=== PATIENT | female | born 1985 | race Caucasian/White ===

== ENCOUNTER 2018-05-16 17:54 | Emergency (ER) | payer OTHER ==
[~2018-05-16] VITALS: Ht 172.7 cm; Wt 68.0 kg
[2018-05-16 17:56] VITALS: BP 126/72
--- NOTE | 2018-05-16 18:10 | NUR ---
PT ABMULATED TO ER BED 05
--- NOTE | 2018-05-16 18:12 | NUR ---
BIB WITH C/O LOWER BACK PAIN FROM FALL THIS MORNING. PT STATES SHE WAS FEELING DIZZY EARLIER THIS MORNING FELL AND HIT HER LOWER BACK. PT IS NOT ABLE TO WALK AT THIS TIME, + VOMITING X 2, + DIZZINESS. 10/10 SHARP PAIN, -LOC
--- NOTE | 2018-05-16 19:06 | NUR ---
report given to Harley for continued care. Patient stable.
--- NOTE | 2018-05-16 19:09 | NUR ---
KVNG WHALEY EVALUATING PATIENT AT BEDSIDE
--- NOTE | 2018-05-16 19:13 | NUR ---
REPORT RECEIVED FROM JENELLE WINKLER
[2018-05-16] MEDS ORDERED: KETOROLAC 30 MG/ML VIAL IM ONE (19:15)
--- NOTE | 2018-05-16 19:38 | NUR ---
Patient discharged with v/s stable. Written and verbal after care instructions given and explained. Patient alert, oriented and verbalized understanding of instructions. Ambulatory with steady gait. All questions addressed prior to discharge. ID band removed. Patient advised to follow up with PMD. Rx of IBUPROFEN AND TYLENOL given. Patient educated on indication of medication including possible reaction and side effects. Opportunity to ask questions provided and answered.
[2018-05-16 19:39] VITALS: BP 126/72
== END 2018-05-16 19:38 | disposition home or self-care (01) ==
LOC: MED 17:54
DX: S39.92XA Unspecified injury of lower back, initial encounter (principal); R42 Dizziness and giddiness; W19.XXXA Unspecified fall, initial encounter; Y93.89 Activity, other specified; Y92.89 Other specified places as the place of occurrence of the external cause; Y99.8 Other external cause status
CPT/HCPCS: 72220; 81002; 81025; 96372; 99283; J1885

== ENCOUNTER 2018-09-21 06:29 | Day surgery (SDC) | payer OTHER ==
[~2018-09-21] VITALS: Ht 172.7 cm; Wt 79.8 kg
[2018-09-21] MEDS ORDERED: BEN10 PO (07:27)
[2018-09-21] MEDS ORDERED: OMEP40EC14 PO (07:27)
[2018-09-21] MEDS ORDERED: LIDOCAINE 2% 100 MG/5 ML UJET TP ONE (07:57)
[2018-09-21] MEDS ORDERED: fentaNYL 0.05 MG/ML VIAL ONE (07:57)
[2018-09-21] MEDS ORDERED: fentaNYL 0.05 MG/ML VIAL IVP ONE (08:14)
== END 2018-09-21 09:17 | disposition home or self-care (01) ==
LOC: MMU 06:29 → MDS 06:29
PROVIDERS: ATTEND Internal Medicine Gastroenterology
DX: K63.89 Other specified diseases of intestine (principal); K21.9 Gastro-esophageal reflux disease without esophagitis; G43.909 Migraine, unspecified, not intractable, without status migrainosus; Z79.899 Other long term (current) drug therapy; Z98.890 Other specified postprocedural states
CPT/HCPCS: 45378; 81025; J3010

== ENCOUNTER 2020-03-21 20:22 | Emergency (ER) | payer OTHER ==
[~2020-03-21] VITALS: Ht 172.7 cm; Wt 72.6 kg
[~2020-03-21 20:22] MED LIST: BEN10 PO; OMEP40EC14 PO
[2020-03-21 20:25] VITALS: BP 132/76
--- NOTE | 2020-03-21 20:28 | NUR ---
TO LOBBY A/W BED AMBULATORY
--- NOTE | 2020-03-21 21:50 | NUR ---
SEEN AND EXAMINED BY AURELIO AND WITH ORDERS , CARRIED OUT.
[2020-03-21] MEDS ORDERED: ACETAMINOPHEN EXTRA STRENGTH 500 MG TAB PO ONE (22:00)
[2020-03-21] MEDS ORDERED: KETOROLAC 15 MG/ML VIAL IM ONE (22:00)
[2020-03-21 22:45] VITALS: BP 132/76
--- NOTE | 2020-03-21 22:45 | NUR ---
Patient discharged with v/s stable. Written and verbal after care instructions given and explained. Patient verbalized understanding. Ambulatory with steady gait. All questions addressed prior to discharge. Advised to follow up with PMD.
== END 2020-03-21 22:45 | disposition home or self-care (01) ==
LOC: MED 20:22
DX: R51.9 Headache, unspecified (principal); H53.8 Other visual disturbances; G43.909 Migraine, unspecified, not intractable, without status migrainosus; Z79.899 Other long term (current) drug therapy; Z88.8 Allergy status to other drugs, medicaments and biological substances
CPT/HCPCS: 96372; 99283; J1885

== ENCOUNTER 2021-01-05 15:38 | Emergency (ER) | payer OTHER ==
[~2021-01-05] VITALS: Ht 203.2 cm; Wt 72.6 kg
[~2021-01-05 15:38] MED LIST changes: -OMEP40EC14 PO; +OMEP40EC23 PO
[2021-01-05 15:46] VITALS: BP 151/79
[2021-01-05] MEDS ORDERED: IBUP-2213 PO (17:49)
[2021-01-05 18:25] VITALS: BP 151/79
== END 2021-01-05 18:25 | disposition home or self-care (01) ==
LOC: MED 15:38
DX: M25.532 Pain in left wrist (principal); I10 Essential (primary) hypertension; Z79.1 Long term (current) use of non-steroidal anti-inflammatories (NSAID); Z79.899 Other long term (current) drug therapy
CPT/HCPCS: 73110; 99283